=== PATIENT | female | born 2000 | race Caucasian/White ===

== ENCOUNTER 2021-08-10 07:59 | Emergency (ER) | payer SELFPAY ==
[2021-08-10 08:14] VITALS: BP 125/82; PULSE 87; RESP 16; TEMP 36.4; O2SAT 98
--- NOTE | 2021-08-10 08:56 | ED.GENADULT ---
HPI - General Adult General Chief complaint: Unspecified Stated complaint: needs preg test/st Time Seen by Provider: 08/10/21 08:50 History of Present Illness HPI narrative: Patient is a 21-year-old female here for evaluation of nausea and vomiting for the past 2 days. Patient states that she has felt nauseous with little appetite and has thrown up about 3 times in total. She denies blood in her vomit, abdominal pain, fevers, diarrhea, constipation, blood in her stools, sick contacts, dysuria, hematuria, vaginal discharge or pelvic pain Patient reporting mild sore throat and congestion, resolved today. Patient's last menstrual cycle was in the beginning of June, she is currently sexually active but not on contraceptives or using condoms. Related Data Allergies Allergy/AdvReac Type Severity Reaction Status Date / Time No Known Allergies Allergy Verified 08/10/21 08:24 Review of Systems Review of Systems: Gen.: Denies fevers or chills Eyes: Denies eye pain or visual change ENT: Reports congestion and sore throat Respiratory: Denies shortness of breath or cough CV: Denies chest pain or palpitations GI: Reports nausea and vomiting. Denies abdominal pain or diarrhea denies burning, urgency, frequency or hematuria Musculoskeletal: Denies back pain or muscle pain Neuro: Denies numbness, tingling, weakness or focal weakness Skin: Denies rash Except as documented, all other systems reviewed and negative Exam Narrative: APPEARANCE: Well appearing, no pain in distress, well-nourished. Head: normocephalic and atraumatic. EYES: PERRLA/EOMI, conjunctivae clear NOSE: No nasal drainage EARS: External ear normal in appearance THROAT: Oropharynx is clear. Mucous membranes are moist. NECK: Supple. No adenopathy, no masses. RESPIRATORY: Airway patent, respirations nonlabored. Clear to auscultation bilaterally, no rales, rhonchi, wheezing. CARDIOVASCULAR: Regular rate and rhythm without murmurs, rubs, or gallops. ABDOMINAL: Normoactive bowel sounds. Soft, nontender, nondistended. No rebound tenderness or guarding. MUSCULOSKELETAL: Extremities are warm and well-perfused. Moves all extremities well. No edema. NEURO: Normal speech. No focal neurologic deficits. SKIN: Skin is warm and dry. No rashes. PSYCHIATRIC: Normal affect/mood. Course Vital Signs Vital signs: Vital Signs Temperature 36.4 C L 08/10/21 08:14 Pulse Rate 87 08/10/21 08:14 Respiratory Rate 16 08/10/21 08:14 Blood Pressure 125/82 08/10/21 08:14 Pulse Oximetry 98 08/10/21 08:14 Oxygen Delivery Room Air 08/10/21 08:14 Temperature 36.4 C L 08/10/21 08:14 Pulse Rate 87 08/10/21 08:14 Respiratory Rate 16 08/10/21 08:14 Blood Pressure 125/82 08/10/21 08:14 Pulse Oximetry 98 08/10/21 08:14 Oxygen Delivery Room Air 08/10/21 08:14 Medical Decision Making MDM Narrative Medical decision making narrative: 21-year-old female here for evaluation of nausea and 2 episodes of vomiting over the past 2 days. Patient also experiencing bouts of diarrhea over the past month, none today. Patient states she presents largely for test. Her vital signs are normal, she has no abdominal tenderness on exam and she is nontoxic-appearing. Urine negative. Discussed that her symptoms are likely due to irritable bowel syndrome or possibly gastroenteritis. She is tolerating p.o. and is not currently nauseous. Advised bland diet, discussed return precautions with patient, she voiced understanding. Vital Signs Vital Signs: Vital Signs Temperature 36.4 C L 08/10/21 08:14 Pulse Rate 87 08/10/21 08:14 Respiratory Rate 16 08/10/21 08:14 Blood Pressure 125/82 08/10/21 08:14 Pulse Oximetry 98 08/10/21 08:14 Oxygen Delivery Room Air 08/10/21 08:14 Temperature 36.4 C L 08/10/21 08:14 Pulse Rate 87 08/10/21 08:14 Respiratory Rate 16 08/10/21 08:14 Blood Pressure 125/82 08/10/21 08:14 Pulse Oximetry 98
== END 2021-08-10 10:12 | disposition home or self-care (01) ==
PROVIDERS: Emergency Provider Emergency Medicine
DX: K58.9 Irritable bowel syndrome, unspecified (principal)
CPT/HCPCS: 81025; 99283